=== PATIENT | female | born 1985 | race Caucasian/White ===

== ENCOUNTER 2020-01-06 06:02 | Inpatient (IN) | payer BC ==
[2020-01-06 07:09] VITALS: BMI 35.4
[2020-01-06] MEDS ORDERED: OXYTOCIN 20 UNITS in 0.9% NS 20 UNIT/1,000 ML INFUS.BAG IV ONE (08:05)
[2020-01-06] MEDS ORDERED: ELECTROLYTE-148 SOLN 1,000 ML IV SCH (08:15)
[2020-01-06] MEDS ORDERED: ONDANSETRON 4 MG/2 ML VIAL IVPUSH PRN (08:15)
[2020-01-06] MEDS ORDERED: morphine SULFATE/PF 0.5 MG/ML (2cc Syringe - QUVA) EP ONE (08:15)
--- NOTE | 2020-01-06 08:16 | HP ---
Past Medical History - Primary Care Physician PCP:: Mauricio Spring - Admission Chief Complaint: 34yo P0 with at EGA 39w3d admitted for section delivery due to fetus in breech presentation. History of Present Illness: at 39w3d with breech fetus Overweight Sequential screen with increased risk for Down Syndrome. History Source: Patient, Medical Record Limitations to Obtaining History: No Limitations - Past Medical History MEDICAL ADMINISTRATIVE ASSISTANT: No: Alzheimer's, CVA, Dementia, Migraine, Multiple Sclerosis, Peripheral Neuropathy, Parkinson's, Seizure, Syncope, TIA, Vertigo, Other Cardiovascular: No: AFIB, Aneurysm, Aortic Insufficiency, Aortic Stenosis, CAD, CHF, Deep Vein Thrombosis, HTN, Hyperlipdemia, [place], Mitral Insufficiency, Mitral Stenosis, Murmur, Pulmonary Hypertension, Other Pulmonary: No: Asthma, Bronchitis, Cancer, COPD, O2 Dependent, Pneumonia, Previously Intubated, Pulmonary Embolus, Pulmonary Fibrosis, Sleep Apnea, Other Gastrointestinal: No: Ascites, Cancer, Constipation, Crohn's Disease, Diverticulitis, Diverticulosis, Esophageal Varices, Gastritis, GERD, GI Bleed, Hemorrhoids, Hiatal Hernia, Inflamatory Bowel Disease, Irritable Bowel Disease, Pancreatitis, Peptic Ulcer Disease, Ulcerative Colitis, Other Hepatobiliary: No: Cirrhosis, Cholelithiasis, Cholecystitis, Choledocholithiasis, Hepatitis A, Hepatitis B, Hepatitis C, Other Renal/: No: Renal Failure, Renal Inusuff, BPH, Cancer, Hematuria, Hemodialysis, Neurogenic Bladder, Renal Calculi, UTI, Other Reproductive: No: Ectopic , Endometriosis, Fibroids, PID, Polycystic Ovary Syndrome, Postmenopausal, Other ...: 1 ...Para: 0 ...Term: 0 ...: 0 ...Spon : 0 ...Induced : 0 ...Living Children: 0 ...Multiple Gestation: 0 ...LMP: 04/06/19 ... Weeks Gestation by Dates: 39.1 ...EDC by Dates: 01/12/20 ...EDC by Sono: 01/10/20 Heme/Onc: No: Anemia, B12 Deficiency, Bleeding Disorder, Cancer, Current Chemotherapy, Current Radiation Therapy, Hemochromatosis, Hypercoaguable State, Myeloproliferative Synd, Sickle Cell Disease, Sickle Cell Trait, Thrombocytope mirian, Other Infectious Disease: No: AIDS, C-Diff, Herpes Zoster, HIV, MRSA, STD's, Tuberculosis, VREF, Other Psych: No: Addictions, Anxiety, Bipolar, Depression, Panic, Psychosis, Schizophrenia, Other Musculoskeletal: No: Bursitis, Chronic low back pain, Hemiparesis, Hemiplegia, Osteoarthritis, Paraplegia, Other Rheumatology: No: Fibromyalgia, Gout, Lupus, Rheumatoid Arthritis, Sarcoidosis, Vasculitis, Other ENT: No: Allergic Rhinitis, Sinusitis, Other Endocrine: No: [place]'s Disease, [place]'s Disease, Diabetes Insipidus, Diabetes Mellitus, Hyperparathyroidism, Hyperthyroidism, Hypothyroidism, Osteopenia, SIADH, Other Dermatology: No: Basal Cell, Cellulitis, Eczema, Melanoma, Psoriasis, Squamous Cell, Other Additional Medical History: Overweight - Past Surgical History Past Surgical History: Yes: None Hx Myomectomy: No Hx Transabdominal Cerclage: No - Smoking History Smoking history: Never smoked Have you smoked in the past 12 months: No - Alcohol/Substance Use Hx Alcohol Use: No History of Substance Use: reports: None - Social History Usual Living Arrangement: Yes: With Spouse Do you think of yourself as: Straight/Heterosexual ADL: Independent History of Recent Travel: No Home Medications - Allergies Allergies/Adverse Reactions: Allergies Allergy/AdvReac Type Severity Reaction Status Date / Time No Known Allergies Allergy Verified 11/05/19 21:22 - Home Medications Home Medications: Ambulatory Orders Pnv 29-1 Tablet 1 tab PO DAILY 11/05/19 Family Medical History Family History: Denies Review of Systems - Review of Systems Constitutional: reports: No Symptoms Eyes: reports: No Symptoms HENT: reports: No Symptoms Neck: reports: No Symptoms Cardiovascular: reports: No Symptoms Respiratory: reports: No Symptoms Gastrointestinal: reports: No Symptoms Genitourinary: reports: No Symptoms Breasts: reports: No Symptoms Reported Musculoskeletal: reports: No Symptoms Integumentary: reports: No Symptoms Neurological: reports: No Symptoms Endocrine: reports: No Symptoms Hematology/Lymphatic: reports: No Symptoms Psychiatric: reports: No Symptoms Pain Intensity: 0 Physical Exam - Maternity Vital Signs: Vital Signs Temperature 98.4 F 01/06/20 07:00 Pulse Rate 116 H 01/06/20 07:00 Respiratory Rate 18 01/06/20 07:00 Blood Pressure 106/63 01/06/20 07:00 O2 Sat by Pulse Oximetry (%) Constitutional: Yes: Well Nourished, No Distress, Calm Eyes: Yes: WNL, Conjunctiva Clear, EOM Intact HENT: Yes: WNL, Atraumatic, Normocephalic Neck: Yes: WNL, Supple, Trachea Midline Cardiovascular: Yes: WNL, Regular Rate and Rhythm Lungs: Clear to auscultation, Normal air movement Breast(s): Yes: WNL - Abdominal Exam/OB Fundal Height: 39 Number of Fetuses: Single Presentation: Breech (confirmed by bedside US) Contractions: No Monitor Mode: External Heart Rate (range): 130 Heart Rate Location: Midline Category: I Accelerations: Uniform Decelerations: None - Vaginal Exam/OB Vaginal Bleeding: No Presentation: Sebastien Breech - Physical Exam Musculoskeletal: Yes: WNL Extremities: Yes: WNL Edema: No Integumentary: Yes: WNL Deep Tendon Reflex Grade: Normal +2 ...Motor Strength: WNL Psychiatric: Yes: WNL, Alert, Oriented Hemorrhage Risk Assessment - Risk Factors Medium Risk Factors: Yes: None High Risk Factors: Yes: None Risk Score: 1 Risk Level: Medium Risk Imaging - Results Ultrasound: Report Reviewed, Image Reviewed Assessment/Plan 34yo P0 with at EGA 39w3d admitted for section delivery due to fetus in breech presentation. The pt declined ext cephalic version. The decision was made to proceed with delivery by C/S. We discussed the risks and benefits of C/S at length, including but not limited to scarring, pain, bleeding, infection, injury to underlying organs and structures, need for additional surgery to repair/treat any problems or complications, complications/injuries, etc. The pt verbalized her understanding and requested to proceed with surgery. The pt is aware that all surgeries have risks and no guarantees can be provided.
[2020-01-06] MEDS ORDERED: PROPOFOL 20 ML ONE (08:19)
[2020-01-06] MEDS ORDERED: SUCCINYLCHOLINE CHLORIDE 200 MG/10 ML SYRINGE ONE (08:21)
[2020-01-06] MEDS ORDERED: ePHEDrine SULFATE 50 MG/1 ML AMPULE ONE (08:31)
[2020-01-06] MEDS ORDERED: IBUPROFEN 800 MG/8 ML IJ IVPB PRN (09:52)
[2020-01-06] MEDS ORDERED: SENNOSIDES/DOCUSATE COMBO (SENNA PLUS) TABLET (UD) PO PRN (09:52)
[2020-01-06] MEDS ORDERED: oxyCODONE HCL 5 MG TABLET PO PRN (09:52)
[2020-01-06] MEDS ORDERED: METHYLERGONOVINE MALEATE 0.2 MG/1 ML AMP IM PRN (09:52)
[2020-01-06 09:57] LABS: CORD BASE EXCESS -12.8 mmol/L (0-2); CORD HCO3 17.4 mmHg (20-29); CORD PCO2 55.8 mmHg (30-78); CORD pH 7.113 (7.14-7.44)
[2020-01-06] MEDS ORDERED: OXYTOCIN 20 UNITS in 0.9% NS 20 UNIT/1,000 ML INFUS.BAG IV SCH (10:00)
[2020-01-06] MEDS ORDERED: CEFAZOLIN 1 GM/D5W 1 GM/50 ML BAG IVPB SCH (10:00)
--- NOTE | 2020-01-06 10:00 | OP ---
Operative Note - Note: Operative Date: 01/06/20 Pre-Operative Diagnosis: at EGA 39w3d. Breech Operation: Primary LT C/S Findings: Live baby girl in complete breech, no meconium in amniotic fluids, normal uterus/ovaries/tubes. 8-9, Wt 7lb 3oz Post-Operative Diagnosis: Same as Pre-op Surgeon: Mauricio Spring Vice President Of Instruction: Sara Lakhani Anesthesiologist/BIOTECHNOLOGIST: Zaynab Sage MD Anesthesia: Spinal Specimens Removed: Placenta Estimated Blood Loss (mls): 600 Drains & Tubes with Location: Bell Catheter Drains, Volume Out (mls): 500 Blood Volume Replaced (mls): 0 Fluid Volume Replaced (mls): 2,000 Operative Report Dictated: Yes
[2020-01-06 10:02] LABS: CORD PCO2 86.3 mmHg (30-78); CORD pH 6.942 (7.14-7.44)
[2020-01-06 10:06] LABS: CORD HCO3 18.2 mmHg (20-29)
--- NOTE | 2020-01-06 11:16 | OP ---
DATE OF OPERATION: 01/06/2020 PREOPERATIVE DIAGNOSIS: at estimated gestational age of 39 weeks and 3 days, fetus in breech presentation. Patient is not in labor. POSTOPERATIVE DIAGNOSIS: at estimated gestational age of 39 weeks and 3 days, fetus in breech presentation. Patient is not in labor, delivered. PROCEDURE: Primary low transverse section via Pfannenstiel skin incision. SURGEON: Mauricio Spring MD SAFE DEPOSIT CLERK: Sara Lakhani MD ANESTHESIOLOGIST: Zaynab Sage MD ANESTHESIA: Spinal. COMPLICATIONS: None. ESTIMATED BLOOD LOSS: 600 mL INTRAVENOUS FLUIDS: 2000 mL URINE OUTPUT: 500 mL of clear urine at the end of the procedure. PATHOLOGY: Placenta. FINDINGS: Live baby girl in complete breech presentation. No meconium in amniotic fluids. Normal uterus, ovaries and fallopian tubes. scores are 8 and 9. Baby's weight is 7 pounds and 3 ounces. PROCEDURE: The patient was met preoperatively. Risks, benefits and alternatives of surgery were discussed in details. All questions were answered. The consent form was reviewed and discussed. The patient verbalized her understanding and requested to proceed with surgery. Preoperative bedside ultrasound confirmed the baby to be in breech presentation. The patient was then moved to the OR with the IV running. She was placed on a surgical table in the sitting position. The spinal anesthesia was achieved without difficulty. The patient was then placed in a supine position with a leftward tilt. A Bell catheter was left to drain to gravity. The patient was prepped and draped in the usual sterile fashion. The timeout was conducted as per standard protocol. The surgeons then proceeded with the operation. A Pfannenstiel incision was made approximately 2 cm above the pubic symphysis. The incision was carried down to the level of the fascia. The fascia was incised in the midline. The incision was extended bilaterally using Infante scissors. The fascia was dissected away from the rectus muscles superiorly and inferiorly using sharp and blunt dissection. The rectus muscles were in the midline. The peritoneum was identified, tented up with 2 Letitia clamps and entered sharply. The peritoneal incision was extended superiorly and inferiorly using Metzenbaum scissors. The bladder peritoneum was incised and dissected away from the lower uterine segment using sharp dissection. The bladder was reflected downwards with the Patricia retractor. The lower uterine segment was incised transversely with the knife. The incision was extended bilaterally using bandage scissors. The baby was delivered from complete breech presentation without complications. The baby's nose and mouth were suctioned on delivery. The umbilical cord was clamped and cut. The baby was handed to the awaiting user interface engineer. The placenta was extracted manually without complications. The uterus was cleared of all clots and debris using laparotomy pads. The uterine incision was then repaired using a 0 Biosyn suture with a running locking stitch. Good hemostasis was noted. The uterine incision was imbricated using a 0 Biosyn suture with good hemostasis and approximation. The bladder peritoneum was reapproximated using 2-0 chromic sutures. The operative site was irrigated using copious amounts of normal saline. Once the saline was aspirated, good hemostasis was confirmed. The parietal peritoneum was approximated using a 2-0 chromic suture. The rectus muscles were approximated using several interrupted 2-0 chromic sutures. The fascia was closed using a 0 Vicryl suture with good hemostasis and approximation. The subcutaneous adipose tissues and Jelena's fascia were approximated using several interrupted 2-0 chromic sutures. The skin was closed with a 3-0 Vicryl suture using a subcutaneous stitch. Sponge, lap, instrument counts were correct. The patient tolerated the procedure well. She was transferred to the recovery room awake and in stable condition. Abdelrahman [id number]
[2020-01-06] MEDS: CEFAZOLIN 1 GM/D5W 1 GM/50 ML BAG IVPB SCH (18:12)
[2020-01-07] MEDS: CEFAZOLIN 1 GM/D5W 1 GM/50 ML BAG IVPB SCH ×2 (01:40→09:36)
[2020-01-07] MEDS: IBUPROFEN 600 MG TABLET (FP) PO PRN ×4 (06:48→22:26)
[2020-01-07] MEDS: SIMETHICONE 80 MG TAB.CHEW (FP) PO PRN ×4 (06:48→22:27)
--- NOTE | 2020-01-07 08:15 | PN ---
Progress Note (short form) - Note Progress Note: Anesthesia/Pain Pt seen and examined S:Alert and awake,comfortable O: Vital Signs Temperature 98.0 F 01/07/20 06:00 Pulse Rate 67 01/07/20 06:00 Respiratory Rate 20 01/07/20 06:00 Blood Pressure 120/73 01/07/20 06:00 O2 Sat by Pulse Oximetry (%) 99 01/07/20 06:00 A/P; s/p c section Doing well post op Continue current care Adam Viera M.D.
[2020-01-07 08:17] LABS: BASO % 0.4 % (0-2.0); EOS % 0.5 % (0-4.5); HEMOGLOBIN 11.9 GM/dL (10.7-15.3); MCH 30.1 pg (25.7-33.7); MCHC 33.9 g/dl (32.0-36.0); MEAN CELL VOLUME 88.7 fl (80-96); MEAN PLT VOLUME 9.3 fl (7.5-11.1); NEUT % 84.1 % (42.8-82.8); PLATELET COUNT 295 K/MM3 (134-434); RBC 3.95 M/mm3 (3.60-5.2); RDW 12.7 % (11.6-15.6); WHITE BLOOD COUNT 12.2 K/mm3 (4.0-10.0)
--- NOTE | 2020-01-07 08:58 | PN ---
Post Progress Note - Subjective Subjective: Patient without acute complaints. Reports tolerating oral intake without nausea or vomiting. Ambulating without dizziness. Denies fevers or chills. Pain well controlled with oral pain medication. Negative flatus, voiding. Post Day: 1 Type of Delivery: Primary C/S Vital Signs: Vital Signs Temperature 98.0 F 01/07/20 06:00 Pulse Rate 67 01/07/20 06:00 Respiratory Rate 20 01/07/20 06:00 Blood Pressure 120/73 01/07/20 06:00 O2 Sat by Pulse Oximetry (%) 99 01/07/20 06:00 Breast Exam: Yes: Soft Uterus: Yes: Fundus Firm Incision: Yes: Dressing dry and intact Abdomen/GI: Yes: Abdomen soft Lochia: Yes: Rubra Lochia, amount: Small Extremities: Yes: Calves non-tender Perineum: Yes: Intact Activity: Ambulating - Labs Labs: CBC WBC 12.2 K/mm3 (4.0-10.0) H 01/07/20 07:32 RBC 3.95 M/mm3 (3.60-5.2) 01/07/20 07:32 Hgb 11.9 GM/dL (10.7-15.3) 01/07/20 07:32 Hct 35.0 % (32.4-45.2) 01/07/20 07:32 MCV 88.7 fl (80-96) 01/07/20 07:32 MCH 30.1 pg (25.7-33.7) 01/07/20 07:32 MCHC 33.9 g/dl (32.0-36.0) 01/07/20 07:32 RDW 12.7 % (11.6-15.6) 01/07/20 07:32 Plt Count 295 K/MM3 (134-434) 01/07/20 07:32 MPV 9.3 fl (7.5-11.1) 01/07/20 07:32 Absolute Neuts (auto) 10.3 K/mm3 (1.5-8.0) H 01/07/20 07:32 Neutrophils % 84.1 % (42.8-82.8) H 01/07/20 07:32 Lymphocytes % 10.0 % (8-40) D 01/07/20 07:32 Monocytes % 5.0 % (3.8-10.2) 01/07/20 07:32 Eosinophils % 0.5 % (0-4.5) 01/07/20 07:32 Basophils % 0.4 % (0-2.0) 01/07/20 07:32 Nucleated RBC % 0 % (0-0) 01/07/20 07:32 Assessment/Plan 34yo P1 s/p 1' c/section POD # 1 VSS,Afebrile CBC wnl Encourage ambulation cont. Routine PP care Rh pos - no need for RhoGam
[2020-01-07] MEDS: ENOXAPARIN NA (PORCINE) 40 MG/0.4 ML DISP.SYRIN SQ SCH (09:36)
[2020-01-07] MEDS ORDERED: BISACODYL 10 MG SUPP.RECT RC PRN (09:52)
[2020-01-07] MEDS ORDERED: ACETAMINOPHEN 325 MG TABLET (FP) ONE ×2 (10:15→17:17)
[2020-01-07] MEDS: ACETAMINOPHEN 325 MG TABLET (FP) PO PRN ×2 (17:15→22:27)
[2020-01-08] MEDS: SIMETHICONE 80 MG TAB.CHEW (FP) PO PRN ×3 (07:55→19:28)
[2020-01-08] MEDS: IBUPROFEN 600 MG TABLET (FP) PO PRN ×3 (07:55→19:28)
[2020-01-08] MEDS: ACETAMINOPHEN 325 MG TABLET (FP) PO PRN ×3 (07:56→19:28)
[2020-01-08] MEDS: ENOXAPARIN NA (PORCINE) 40 MG/0.4 ML DISP.SYRIN SQ SCH (09:37)
--- NOTE | 2020-01-08 15:40 | PN ---
Post Progress Note - Subjective Subjective: Patient without acute complaints. Reports tolerating oral intake without nausea or vomiting. Ambulating without dizziness. Denies fevers or chills. Pain well controlled with oral pain medication. Pumping/breast feeding without issue. Passing flatus, no BM. Post Day: 2 Type of Delivery: Primary C/S Vital Signs: Vital Signs Temperature 98.4 F 01/08/20 09:24 Pulse Rate 72 01/08/20 09:24 Respiratory Rate 18 01/08/20 09:24 Blood Pressure 112/76 01/08/20 09:24 O2 Sat by Pulse Oximetry (%) 96 01/08/20 09:24 Breast Exam: Yes: Soft Uterus: Yes: Fundus Firm, Fundus below umbilicus, Non-tender Incision: Yes: Sutures intact Abdomen/GI: Yes: Abdomen soft, Tolerating PO Lochia: Yes: Rubra Lochia, amount: Small Extremities: Yes: Calves non-tender Perineum: Yes: Intact Activity: Ambulating - Labs Labs: CBC WBC 12.2 K/mm3 (4.0-10.0) H 01/07/20 07:32 RBC 3.95 M/mm3 (3.60-5.2) 01/07/20 07:32 Hgb 11.9 GM/dL (10.7-15.3) 01/07/20 07:32 Hct 35.0 % (32.4-45.2) 01/07/20 07:32 MCV 88.7 fl (80-96) 01/07/20 07:32 MCH 30.1 pg (25.7-33.7) 01/07/20 07:32 MCHC 33.9 g/dl (32.0-36.0) 01/07/20 07:32 RDW 12.7 % (11.6-15.6) 01/07/20 07:32 Plt Count 295 K/MM3 (134-434) 01/07/20 07:32 MPV 9.3 fl (7.5-11.1) 01/07/20 07:32 Absolute Neuts (auto) 10.3 K/mm3 (1.5-8.0) H 01/07/20 07:32 Neutrophils % 84.1 % (42.8-82.8) H 01/07/20 07:32 Lymphocytes % 10.0 % (8-40) D 01/07/20 07:32 Monocytes % 5.0 % (3.8-10.2) 01/07/20 07:32 Eosinophils % 0.5 % (0-4.5) 01/07/20 07:32 Basophils % 0.4 % (0-2.0) 01/07/20 07:32 Nucleated RBC % 0 % (0-0) 01/07/20 07:32 Assessment/Plan 34yo P1 s/p primary LT C/S, doing well stable, afebrile. The pt is asymptomatic for s/sxs of anemia. care instructions reviewed. Postoperative care and instructions reviewed. Continue routine postop care. Ambulation encouraged.
--- NOTE | 2020-01-08 15:44 | DS ---
Physical Exam-CYBER SYSTEMS OPERATIONS SPECIALIST Vital Signs: Vital Signs Temperature 98.4 F 01/08/20 09:24 Pulse Rate 72 01/08/20 09:24 Respiratory Rate 18 01/08/20 09:24 Blood Pressure 112/76 01/08/20 09:24 O2 Sat by Pulse Oximetry (%) 96 01/08/20 09:24 Constitutional: Yes: Well Nourished, No Distress, Calm Eyes: Yes: WNL, Conjunctiva Clear, EOM Intact HENT: Yes: WNL, Atraumatic, Normocephalic Neck: Yes: WNL, Supple, Trachea Midline Cardiovascular: Yes: WNL, Regular Rate and Rhythm Respiratory: Yes: WNL, Regular, CTA Bilaterally Gastrointestinal: Yes: WNL, Normal Bowel Sounds, Soft ...Rectal Exam: Yes: Deferred Renal/: Yes: WNL ....Post : Yes: Uterus firm, Uterus non-tender, Slight lochia rubra Breast(s): Yes: WNL Musculoskeletal: Yes: WNL Extremities: Yes: WNL Edema: No Integumentary: Yes: WNL Wound/Incision: Yes: Clean/Dry, Well Approximated, Sutures Intact, Steri Strips, Open to air Neurological: Yes: WNL, Alert, Oriented ...Motor Strength: WNL Psychiatric: Yes: WNL, Alert, Oriented Labs: CBC, BMP 01/07/20 07:32 Delivery - Delivery Section: Low Flap Transverse Type of Anesthesia: Spinal Episiotomy/Laceration: None EBL (cc): 600 Delivery, Single - Stages of Labor Date of Delivery: 01/06/20 Time of Delivery: 08:57 Time Placenta Delivered: 08:58 Placenta: Yes: Expressed, Manual Removal, Normal Configuration - Condition of Bundle Breaker/Firer Tunnel Kiln Present: Yes Name: Catracho Pat Infant Gender: Female Weight: 3.26 kg Total Hours ROM (Hrs/Mins): 3min - 1 Minute Total Score: 8 5 Minutes Total Score: 9 - Feeding Plan Initial Plan: Exclusive throughout hospitalization Benefits of Exclusively reinforced: Yes Discharge Summary Problems reviewed: Yes Reason For Visit: PRIMARY C SECTION ADMIT at 39wk, complete breech presentation. Procedures: Principal: Primary LT C/S Hospital Course: Normal postoperative and recovery Plan of Treatment: Ambulation, pain management Goals: Normal postoperative and recovery, breast feeding. Condition: Good - Instructions Diet, Activity, Other Instructions: Physical activity Resume your normal everyday activity as tolerated no heavy lifting or exercise until seen by your surgeon. You may walk unlimited jamal of and climb stairs. You may resume driving the car when you feel safe and comfortable behind the wheel. No sexual activity as instructed. Wound care If you have a bandage, leave it on, and keep dry for 48-72 hours. After that time discard the outer bandage. If they are tapes on the skin under the out of bandage leave them in place. They will peel off in the next 7 to 10 days. Do Not Peel them off. You may shower the day after surgery. If there are tapes present on the skin, you may shower over them. Diet There are no dietary restrictions. Eat healthy, high-fiber foods. Drink 6 to 8 glasses of liquid each day. This will assist in keeping your bowels are regular. Pain management You may take Tylenol or acetaminophen or Ibuprofen (for example, Motrin, Advil etc.) from my pain prescription medication is ordered should be taken as presc ribed for moderate to severe pain. Call MD for any of the following: Severe pain not relieved by medication Fever of 101 or higher Excessive bleeding or drainage on dressing Inability to urinate Referrals: Mauricio Spring MD [Staff Physician] - 1 Week Disposition: HOME - Home Medications Comprehensive Discharge Medication List: Ambulatory Orders Pnv 29-1 Tablet 1 tab PO DAILY 11/05/19 Prescription Drug Monitoring Program (I-STOP) results: I-STOP not reviewed
[2020-01-09] MEDS: ACETAMINOPHEN 325 MG TABLET (FP) PO PRN ×2 (01:57→07:50)
[2020-01-09] MEDS: SIMETHICONE 80 MG TAB.CHEW (FP) PO PRN ×2 (01:57→07:52)
[2020-01-09] MEDS: IBUPROFEN 600 MG TABLET (FP) PO PRN ×2 (01:58→07:51)
[2020-01-09 08:13] LABS: BASO % 0.5 % (0-2.0); EOS % 2.6 % (0-4.5); HEMATOCRIT 34.3 % (32.4-45.2); HEMOGLOBIN 11.6 GM/dL (10.7-15.3); LYMPH % 15.5 % (8-40); MCH 29.9 pg (25.7-33.7); MCHC 33.7 g/dl (32.0-36.0); MEAN CELL VOLUME 88.8 fl (80-96); MEAN PLT VOLUME 8.9 fl (7.5-11.1); MONO % 8.1 % (3.8-10.2); NEUT % 73.3 % (42.8-82.8); PLATELET COUNT 346 K/MM3 (134-434); RBC 3.86 M/mm3 (3.60-5.2); RDW 12.5 % (11.6-15.6); WHITE BLOOD COUNT 9.2 K/mm3 (4.0-10.0)
--- NOTE | 2020-01-09 09:24 | PN ---
Post Progress Note - Subjective Subjective: Patient without acute complaints. Reports tolerating oral intake without nausea or vomiting. Ambulating without dizziness. Denies fevers or chills. Pain well controlled with oral pain medication. / pumping Passing flatus. Post Day: 3 Type of Delivery: Primary C/S Vital Signs: Vital Signs Temperature 98.4 F 01/08/20 19:38 Pulse Rate 84 01/08/20 19:38 Respiratory Rate 20 01/08/20 19:38 Blood Pressure 125/88 01/08/20 19:38 O2 Sat by Pulse Oximetry (%) 96 01/08/20 09:24 Breast Exam: Yes: Soft Uterus: Yes: Fundus Firm, Fundus below umbilicus Incision: Yes: Sutures intact. No: Redness, Oozing Abdomen/GI: Yes: Abdomen soft, Passing flatus, Tolerating PO. No: Abdominal Distention, Tender Lochia: Yes: Rubra Lochia, amount: Small Extremities: Yes: Calves non-tender. No: Edema Activity: Ambulating - Labs Labs: CBC WBC 9.2 K/mm3 (4.0-10.0) 01/09/20 07:32 RBC 3.86 M/mm3 (3.60-5.2) 01/09/20 07:32 Hgb 11.6 GM/dL (10.7-15.3) 01/09/20 07:32 Hct 34.3 % (32.4-45.2) 01/09/20 07:32 MCV 88.8 fl (80-96) 01/09/20 07:32 MCH 29.9 pg (25.7-33.7) 01/09/20 07:32 MCHC 33.7 g/dl (32.0-36.0) 01/09/20 07:32 RDW 12.5 % (11.6-15.6) 01/09/20 07:32 Plt Count 346 K/MM3 (134-434) 01/09/20 07:32 MPV 8.9 fl (7.5-11.1) 01/09/20 07:32 Absolute Neuts (auto) 6.7 K/mm3 (1.5-8.0) 01/09/20 07:32 Neutrophils % 73.3 % (42.8-82.8) 01/09/20 07:32 Lymphocytes % 15.5 % (8-40) D 01/09/20 07:32 Monocytes % 8.1 % (3.8-10.2) 01/09/20 07:32 Eosinophils % 2.6 % (0-4.5) D 01/09/20 07:32 Basophils % 0.5 % (0-2.0) 01/09/20 07:32 Nucleated RBC % 0 % (0-0) 01/09/20 07:32 Assessment/Plan 34 yo POD # 3 s/p primary CD, afebrile, vital signs stable, doing well 1. Patient stable for discharge home today. 2. Patient encouraged to contact MD for: - Severe pain not controlled by oral pain medication - Fevers or chills - Nausea or vomiting, intolerance of oral intake - Incision redness, tenderness or discharge 3. Patient to follow up in office in 1-2 weeks for incision check, 4-6 weeks for visit
[2020-01-09] MEDS: ENOXAPARIN NA (PORCINE) 40 MG/0.4 ML DISP.SYRIN SQ SCH (10:36)
[2020-01-09 12:00] VITALS: BP 119/64; PULSE 76; TEMP 98.3
--- NOTE | 2020-01-14 12:22 | PATH ---
Surgical Pathology Report Patient Name: CORBIN CARLOS Med. Rec. #: [id number] /Age/Gender: 1985 (Age: 34) / F Account: [id number] Location: [facility] OBS/LICENSING REGISTRATION EXAMINER Taken: 01/06/2020 Received: 01/06/2020 Reported: 01/14/2020 Physicians: Mauricio Spring M.D. Specimen(s) Received PLACENTA Clinical History 39.1 weeks gestation, , breech presentation Final Diagnosis PLACENTA, : MATURE THIRD TRIMESTER PLACENTA (550 GMS) WITH TRIVESSEL UMBILICAL CORD AND UNREMARKABLE PLACENTAL MEMBRANES. Electronically Signed Lorraine Esposito M.D. Gross Description The specimen is received fresh labeled placenta and is a 550 gram, 16.0 x 13.0 x 4.0 cm. placenta with attached membranes and umbilical cord. The attached membranes are rodriguez, translucent with focal opacities and insert marginally. The umbilical cord measures 13 cm. in length and averages 1 cm. in diameter. The cord inserts at the margin. No true knots or strictures are identified. Cut surface of the umbilical cord reveals 3 vessels. The surface is medina-blue with minimal fibrin deposition and appropriate caliber vessels. The maternal surface is red-brown with focal defects. Sectioning reveals red-brown, spongy parenchyma. No lesions are identified. Roll Form Operator sections are submitted in three cassettes as follows: 1- membrane rolls and umbilical cord; 2-3- full thickness sections of placenta. /01/09/2020 saudi/01/09/2020
== END 2020-01-09 12:15 | disposition home or self-care (01) | DRG 788 ==
LOC: JLDR 06:02 → J3W 11:07
PROVIDERS: ADMIT Obstetrics & Gynecology; ATTEND Obstetrics & Gynecology
PROC: 10D00Z1 Extraction of Products of Conception, Low, Open Approach (ICD-10-PCS; principal; 2020-01-06)
DX: O32.1XX0 Maternal care for breech presentation, not applicable or unspecified (principal); Z3A.39 39 weeks gestation of pregnancy; Z37.0 Single live birth
CPT/HCPCS: 36415; 36600; 82803; 85025; 88307-TC

== ENCOUNTER 2021-06-18 11:55 | Inpatient (IN) | payer BC ==
[2021-06-18 12:56] VITALS: BMI 23.4
[2021-06-18] MEDS ORDERED: CITRIC ACID/SODIUM CITRATE 30 ML UNIT-DOSE CUP PO ONE (14:30)
[2021-06-18] MEDS ORDERED: ELECTROLYTE-148 SOLN 1,000 ML IV SCH (14:30)
[2021-06-18] MEDS ORDERED: ceFAZolin SODIUM 1 GM VIAL ONE (14:45)
[2021-06-18] MEDS ORDERED: morphine SULFATE/PF 1 MG/2 ML (2cc Syringe - QUVA) ONE (14:46)
[2021-06-18] MEDS ORDERED: ONDANSETRON 4 MG/2 ML VIAL IVPUSH PRN (14:58)
[2021-06-18] MEDS ORDERED: ACETAMINOPHEN 325 MG TABLET (FP) PO PRN (14:58)
[2021-06-18] MEDS ORDERED: OXYTOCIN 10 UNITS/ML VIAL ONE (15:14)
[2021-06-18] MEDS ORDERED: ONDANSETRON 4 MG/2 ML VIAL ONE (15:14)
[2021-06-18] MEDS ORDERED: BENZOCAINE 20% 57 GM BOTTLE TP PRN (16:05)
[2021-06-18] MEDS ORDERED: METHYLERGONOVINE MALEATE 0.2 MG/1 ML AMP IM PRN (16:05)
[2021-06-18] MEDS ORDERED: WITCH HAZEL 50% (TUCKS) 40 PAD/JAR PAD TP PRN (16:05)
[2021-06-18] MEDS ORDERED: SENNOSIDES/DOCUSATE COMBO (SENNA PLUS) TABLET (UD) PO PRN (16:05)
[2021-06-18] MEDS ORDERED: BENZOCAINE 28 GM HEMORRHOIDAL OINTMENT TP PRN (16:05)
[2021-06-18] MEDS ORDERED: IBUPROFEN 800 MG/8 ML IJ IVPB PRN (16:05)
[2021-06-18 16:13] LABS: CORD PCO2 69.7 mmHg (30-78); CORD pH 7.136 (7.14-7.44)
[2021-06-18] MEDS ORDERED: KETOROLAC TROMETHAMINE 30 MG/1 ML VIAL ONE (16:14)
[2021-06-18 16:17] LABS: CORD BASE EXCESS -5.7 mmol/L (0-2); CORD HCO3 22.3 mmHg (20-29); CORD PCO2 51.9 mmHg (30-78); CORD pH 7.251 (7.14-7.44)
[2021-06-18] MEDS ORDERED: ceFAZolin 2 GRAM PREMIX BAG IVPB SCH (16:30)
[2021-06-18] MEDS: OXYTOCIN 20 UNITS in 0.9% NS 20 UNIT/1,000 ML INFUS.BAG IV SCH (16:45)
[2021-06-18] MEDS ORDERED: OXYTOCIN 20 UNITS in 0.9% NS 20 UNIT/1,000 ML INFUS.BAG IV ONE (17:02)
[2021-06-18] MEDS: CEFAZOLIN 2 GM in DEXTROSE 5%-WATER - 100 ML IVPB SCH (21:40)
[2021-06-19] MEDS: OXYTOCIN 20 UNITS in 0.9% NS 20 UNIT/1,000 ML INFUS.BAG IV SCH (01:15)
[2021-06-19] MEDS ORDERED: oxyCODONE HCL 5 MG TABLET PO PRN ×2 (04:05)
[2021-06-19] MEDS: CEFAZOLIN 2 GM in DEXTROSE 5%-WATER - 100 ML IVPB SCH (06:01)
[2021-06-19] MEDS: LEVOTHYROXINE NA 75 MCG TABLET (FP) PO SCH (06:01)
[2021-06-19] MEDS: IBUPROFEN 600 MG TABLET (FP) PO PRN ×4 (07:49→21:03)
[2021-06-19] MEDS: SIMETHICONE 80 MG TAB.CHEW (FP) PO PRN ×4 (07:49→21:02)
[2021-06-19 08:13] LABS: BASO % 0.2 % (0-2.0); EOS % 0.4 % (0-4.5); HEMATOCRIT 30.9 % (32.4-45.2); HEMOGLOBIN 10.7 GM/dL (10.7-15.3); LYMPH % 14.1 % (8-40); MCH 28.3 pg (25.7-33.7); MCHC 34.7 g/dl (32.0-36.0); MEAN CELL VOLUME 81.6 fl (80-96); MEAN PLT VOLUME 9.2 fl (7.5-11.1); MONO % 5.4 % (3.8-10.2); NEUT % 79.9 % (42.8-82.8); PLATELET COUNT 244 10^3/uL (134-434); RBC 3.79 M/mm3 (3.60-5.2); RDW 13.9 % (11.6-15.6); WHITE BLOOD COUNT 9.9 K/mm3 (4.0-10.0)
[2021-06-19] MEDS: ENOXAPARIN NA (PORCINE) 40 MG/0.4 ML DISP.SYRIN SQ SCH (09:12)
[2021-06-19] MEDS: PRENATAL VITAMINS W/ FOLIC ACID TABLET (FP) PO SCH (09:32)
[2021-06-19] MEDS ORDERED: BISACODYL 10 MG SUPP.RECT RC PRN (16:05)
[2021-06-20] MEDS: IBUPROFEN 600 MG TABLET (FP) PO PRN ×3 (01:12→10:30)
[2021-06-20] MEDS: SIMETHICONE 80 MG TAB.CHEW (FP) PO PRN ×3 (01:12→10:30)
[2021-06-20] MEDS: LEVOTHYROXINE NA 75 MCG TABLET (FP) PO SCH (06:24)
[2021-06-20] MEDS: PRENATAL VITAMINS W/ FOLIC ACID TABLET (FP) PO SCH (10:30)
[2021-06-20] MEDS: ENOXAPARIN NA (PORCINE) 40 MG/0.4 ML DISP.SYRIN SQ SCH (10:31)
[2021-06-20 12:25] VITALS: BP 123/73; PULSE 73; TEMP 98.4
== END 2021-06-20 12:45 | disposition home or self-care (01) | DRG 788 ==
LOC: JLDR 11:55 → J3W 17:30
PROVIDERS: ADMIT Obstetrics & Gynecology; ATTEND Obstetrics & Gynecology
PROC: 10D00Z1 Extraction of Products of Conception, Low, Open Approach (ICD-10-PCS; principal; 2021-06-18)
DX: O34.219 Maternal care for unspecified type scar from previous cesarean delivery (principal); Z3A.39 39 weeks gestation of pregnancy; Z37.0 Single live birth
CPT/HCPCS: 36415; 36600; 82803; 85025; 88307-TC